=== PATIENT | male | born 1945 | race Caucasian/White ===

== ENCOUNTER 2016-10-04 12:27 | Day surgery (SDC) | payer MEDICARE, OTHER ==
--- NOTE | 2016-10-01 09:09 | HP ---
DATE OF SURGERY: 10/04/2016 ADMISSION DIAGNOSIS: Lesion left upper back, lesion right lower leg. ANTICIPATED PROCEDURE: Excision of these two lesions. HISTORY OF PRESENT ILLNESS: The patient has possible basal cell of the back 1.2 cm. He also has 1 cm lesion of the right lower extremity. PAST MEDICAL HISTORY: ALLERGIES: NONE. MEDICATIONS: Glucophage. PAST SURGICAL HISTORY: Appendectomy. SOCIAL HISTORY: Negative. FAMILY HISTORY: Negative. REVIEW OF SYSTEMS: Prediabetic, controlled hypertension. PHYSICAL EXAMINATION: VITAL SIGNS: Normal. CHEST: Clear. COR: Regular. IMPRESSION: Two lesions. PLAN: Excision.
[~2016-10-04 12:27] MED LIST: DEMEROL 50 MG SDV IV ONE; Sodium Chloride 0.9% 1000 ML 1,000 ML IV SCH; Sodium Chloride 0.9% 1000 ML 1,000 ML ONE; VERSED 5 MG/5 ML IV ONE; XYLOCAINE 1% HCL 20 ML MDV ONE
[2016-10-04] MEDS ORDERED: Sodium Chloride 0.9% 1000 ML 1,000 ML ONE (12:44)
[2016-10-04 17:56] VITALS: O2SAT 95
[2016-10-04 18:15] VITALS: BP 156/87; PULSE 57
--- NOTE | 2016-10-05 08:51 | OP ---
SURGERY DATE: 10/04/16 SURGERY TIME: 1644 PREOPERATIVE DIAGNOSIS: 1. LESION LEFT UPPER BACK AND RIGHT LOWER LEG. POSTOPERATIVE DIAGNOSIS: 1. LESION LEFT UPPER BACK AND RIGHT LOWER LEG. PROCEDURE: 1. Excision of a 1.2 cm lesion through a 3 cm X 1.5 cm elliptical excision of the back with closure. 2. Excision of 1 cm lesion through a 2.5 cm X 1.5 cm elliptical excision and closure on the right leg. SURGEON: Waqas Robertson M.D. ANESTHESIA: Local, IV sedation. COMPLICATIONS: None. CONDITION: Stable. INDICATION: Patient requiring excision of these 2 changing lesions. OPERATIVE PROCEDURE: Routine prep and drape. IV sedation titrated. 1% Lidocaine. Elliptical excision followed by closure of these 2 lesions.
== END 2016-10-04 18:28 | disposition home or self-care (01) ==
LOC: SDC 12:27
PROVIDERS: ATTEND Surgery
PROC: 0HB6XZX Excision of Back Skin, External Approach, Diagnostic (ICD-10-PCS; principal; 2016-10-04)
PROC: 0HBKXZX Excision of Right Lower Leg Skin, External Approach, Diagnostic (ICD-10-PCS; 2016-10-04)
DX: C44.519 Basal cell carcinoma of skin of other part of trunk (principal); L82.0 Inflamed seborrheic keratosis; L98.8 Other specified disorders of the skin and subcutaneous tissue; R73.03 Prediabetes; I10 Essential (primary) hypertension
CPT/HCPCS: 36415; 82962; 88305; J2175; J2250